=== PATIENT | female | born 1950 | race Caucasian/White ===

== ENCOUNTER → 2016-08-08 | Outpatient (CLI) | payer MEDICARE, OTHER ==
[~2016-08-08] MED LIST: GLUCOPHAGE 500500 MG PO; HYDROCHLOROTH12.5 M1 PO; KLONOPIN TAB 00.5 MG PO; LISINOPRIL5 MG PO; METOPROLOL SUCC25 MG PO; PROTONIX40 MG PO; VITAMIN B-1000 MCG/M SQ; ZANTAC 150 MG150 MG PO; ZYLOPRIM 100 M100 MG PO
== END ==
LOC: LBRF 12:05
DX: N39.0 Urinary tract infection, site not specified (principal)
CPT/HCPCS: 87086

== ENCOUNTER 2016-09-11 03:01 | Observation (INO) | payer MEDICARE, OTHER ==
[~2016-09-11] VITALS: Ht 160 cm; Wt 102.1 kg
[~2016-09-11 03:01] MED LIST changes: -GLUCOPHAGE 500500 MG PO; -HYDROCHLOROTH12.5 M1 PO; -KLONOPIN TAB 00.5 MG PO; -LISINOPRIL5 MG PO; -METOPROLOL SUCC25 MG PO; -PROTONIX40 MG PO; -ZANTAC 150 MG150 MG PO; -ZYLOPRIM 100 M100 MG PO
[2016-09-11 03:32] LABS: HEMOGLOBIN 14.3 gm/dl (12.3-15.3); RED BLOOD COUNT 5.41 M/UL (4.00-5.10); WHITE BLOOD COUNT 6.7 K/UL (4.5-11.0)
[2016-09-11 03:58] LABS: BUN/CREATININE RATIO 23 (0-10)
[2016-09-11] MEDS ORDERED: KLONOPIN TAB 00.5 MG PO (07:31)
[2016-09-11] MEDS ORDERED: ZYLOPRIM 100 M100 MG PO (07:31)
[2016-09-11] MEDS ORDERED: GLUCOPHAGE 500500 MG PO (07:31)
[2016-09-11] MEDS ORDERED: ZANTAC 150 MG150 MG PO (07:32)
[2016-09-11] MEDS ORDERED: METOPROLOL SUCC25 MG PO (07:33)
[2016-09-11] MEDS ORDERED: HYDROCHLOROTH12.5 M1 PO (07:33)
[2016-09-11] MEDS ORDERED: LISINOPRIL5 MG PO (07:34)
[2016-09-11] MEDS ORDERED: PROTONIX40 MG PO (07:35)
== END 2016-09-11 18:53 | disposition home or self-care (01) ==
LOC: ER1 03:01 → ZEROF 04:55 → MED SURG 4 04:55
PROVIDERS: Emergency Medicine; ADMIT Internal Medicine
DX: R07.9 Chest pain, unspecified (principal); I10 Essential (primary) hypertension; E78.5 Hyperlipidemia, unspecified; E11.9 Type 2 diabetes mellitus without complications; F41.9 Anxiety disorder, unspecified; M10.9 Gout, unspecified; K21.9 Gastro-esophageal reflux disease without esophagitis; E66.9 Obesity, unspecified; K44.9 Diaphragmatic hernia without obstruction or gangrene; Z87.442 Personal history of urinary calculi; Z79.899 Other long term (current) drug therapy; Z90.49 Acquired absence of other specified parts of digestive tract; Z98.51 Tubal ligation status; Z68.39 Body mass index [BMI] 39.0-39.9, adult
CPT/HCPCS: ECHO; 36415; 71010; 78452; 80053; 80061; 82550; 82553; 83874; 83880; 84484; 85025; 85379; 93005; 93017; 93306; 99285; A9502; G0378

== ENCOUNTER → 2020-08-26 | Outpatient (CLI) | payer MEDICARE ==
[~2020-08-26] MED LIST changes: +GLUCOPHAGE 500500 MG PO; +HYDROCHLOROTH12.5 M1 PO; +KLONOPIN TAB 00.5 MG PO; +LISINOPRIL5 MG PO; +METOPROLOL SUCC25 MG PO; +PROTONIX40 MG PO; +ZANTAC 150 MG150 MG PO; +ZYLOPRIM 100 M100 MG PO
== END ==
LOC: MAMO 12:59
DX: Z12.31 Encounter for screening mammogram for malignant neoplasm of breast (principal); Z80.3 Family history of malignant neoplasm of breast
CPT/HCPCS: 77063; 77067